=== PATIENT | female | born 2000 | race Two or more races ===

== ENCOUNTER 2021-02-26 14:00 | Inpatient (IN) | payer OTHER ==
[~2021-02-26] VITALS: Ht 157.5 cm; Wt 67.1 kg
[2021-03-05] MEDS ORDERED: PRENATAL TABLE1 EAC4 PO (21:52)
== END 2021-03-08 13:37 | disposition home or self-care (01) | DRG 807 ==
LOC: OB/GYN 03-06 05:53 → LDR 03-06 05:53 → OB/GYN 03-06 09:19 → SURH 03-07 14:00 → OB/GYN 03-08 13:37
PROVIDERS: ADMIT Obstetrics & Gynecology; ATTEND Obstetrics & Gynecology
PROC: 10E0XZZ Delivery of Products of Conception, External Approach (ICD-10-PCS; principal; 2021-03-06)
PROC: 0W8NXZZ Division of Female Perineum, External Approach (ICD-10-PCS; 2021-03-06)
PROC: 4A1HXFZ Monitoring of Products of Conception, Cardiac Rhythm, External Approach (ICD-10-PCS; 2021-03-06)
DX: O80 Encounter for full-term uncomplicated delivery (principal); Z37.0 Single live birth; Z3A.39 39 weeks gestation of pregnancy; Z20.822 Contact with and (suspected) exposure to COVID-19

== ENCOUNTER 2021-03-05 21:30 | Outpatient (CLI) | payer OTHER ==
[2021-03-05] MEDS ORDERED: PRENATAL TABLE1 EAC4 PO (21:52)
== END 2021-03-06 06:11 | disposition still patient (30) ==
LOC: OBS/DEL 21:30
PROVIDERS: ATTEND Obstetrics & Gynecology
DX: O47.1 False labor at or after 37 completed weeks of gestation (principal); Z3A.39 39 weeks gestation of pregnancy

== ENCOUNTER 2024-03-30 14:16 | Outpatient (CLI) | payer OTHER ==
[~2024-03-30 14:16] MED LIST: PRENATAL TABLE1 EAC4 PO
== END 2024-03-30 14:17 | disposition home or self-care (01) ==
LOC: PRENATAL 14:16
PROVIDERS: ATTEND Obstetrics & Gynecology Maternal & Fetal Medicine
DX: O35.9XX0 Maternal care for (suspected) fetal abnormality and damage, unspecified, not applicable or unspecified (principal); O35.3XX0 Maternal care for (suspected) damage to fetus from viral disease in mother, not applicable or unspecified; O44.03 Complete placenta previa NOS or without hemorrhage, third trimester; O36.8130 Decreased fetal movements, third trimester, not applicable or unspecified; O99.013 Anemia complicating pregnancy, third trimester; O98.513 Other viral diseases complicating pregnancy, third trimester; Z3A.33 33 weeks gestation of pregnancy

== ENCOUNTER 2024-04-29 06:14 | Inpatient (IN) | payer OTHER ==
[~2024-04-29] VITALS: Ht 157.5 cm; Wt 65.3 kg
[2024-04-29] MEDS ORDERED: RINGERS SOLUTION,LACTATED 1,000 ML IV SCH (06:30)
[2024-04-29] MEDS ORDERED: HIERRO PO (06:51)
[2024-04-29] MEDS ORDERED: OXYTOCIN 500 ML IV SCH (07:30)
[2024-04-29 08:03] LABS: HEMATOCRIT 32.4 % (36.0-45.00); MEAN CELL VOLUME 85.4 fL (80.00-100.00); MEAN CORPUSCULAR HGB CONC 33.9 g/dl (32.0-36.0); RED CELL DISTRIBUTION WIDTH 15.1 % (11.5-14.5)
[2024-04-29 08:08] LABS: PLATELET COUNT 102 K/uL (150-450)
[2024-04-29 08:23] LABS: INR 0.96; PARTIAL THROMBOPLASTIN TIME 25.9 SECONDS (22.0-34.0); PROTHROMBIN TIME 10.1 SECONDS (9.0-11.5)
[2024-04-29 08:43] LABS: ALBUMIN 2.8 gm/dL (3.4-5.0); BILIRUBIN TOTAL 0.41 mg/dL (0.3-1.2); CALCIUM 8.4 mg/dL (8.5-10.1); CREATININE SERUM 0.58 mg/dL (0.55-1.02); GFR 127.72; GLOBULINA 3.5 G/DL (2.4-3.5); POTASSIUM 3.8 mEq/L (3.5-5.1); TOTAL PROTEIN 6.3 gm/dL (6.4-8.2)
[2024-04-29 08:44] LABS: URINE APPEARANCE Clear; URINE BILIRRUBIN Negative (NEGATIVE); URINE BLOOD Negative; URINE COLOR Orange; URINE GLUCOSE Negative (NEGATIVE); URINE LEUKOCYTE Negative; URINE NITRATE Negative; URINE PROTEIN Negative (NEGATIVE); URINE UROBILINOGEN 0.2 E.U./dl
[2024-04-29 08:49] LABS: URINE BACTERIA 352.5 uL (0.0-1933); URINE EPITHELIAL CELLS 15.3 uL (0.0-38.8); URINE WBC 6.9 uL (0.0-23.2)
[2024-04-29 08:58] LABS: URINE RBC 1.5 uL (0.0-20.8)
[2024-04-29] MEDS ORDERED: MEPERIDINE HCL/PF 25 MG/ML VIAL IV ONE (13:15)
[2024-04-29] MEDS ORDERED: PROMETHAZINE HCL 25 MG/ML AMPUL IV NR (13:15)
[2024-04-29] MEDS ORDERED: ERYTHROMYCIN BASE 1 GM TUBE OP ONE (14:49)
[2024-04-29] MEDS ORDERED: OXYTOCIN 20 UNITS/1000ML RL PIGGYBAG IV ONE (14:50)
[2024-04-29] MEDS ORDERED: CHLORHEXIDINE GLUCONATE 120 ML BOTTLE TOP ONE (14:50)
[2024-04-29] MEDS ORDERED: LIDOCAINE HCL 1% 10ML VIAL ONE (14:50)
[2024-04-29] MEDS ORDERED: IBUprofen 400 MG TABLET PO PRN (15:15)
[2024-04-29] MEDS ORDERED: ERYTHROMYCIN BASE 1 GM TUBE OP SCH (15:15)
[2024-04-29] MEDS ORDERED: CHLORHEXIDINE GLUCONATE 120 ML BOTTLE TP SCH (15:15)
[2024-04-29] MEDS ORDERED: OXYTOCIN 1,000 ML IV SCH (15:15)
[2024-04-29] MEDS ORDERED: LIDOCAINE HCL 1% 10ML VIAL IJ ONE (15:45)
[2024-04-30] MEDS ORDERED: SENNOSIDES 1 TAB TABLET PO NR (19:30)
[2024-05-01] MEDS ORDERED: SENNOSIDES 1 TAB TABLET PO SCH (09:00)
[2024-05-01] MEDS ORDERED: NAPR500T14 PO (12:33)
== END 2024-05-01 13:29 | disposition home or self-care (01) | DRG 807 ==
LOC: OB/GYN 06:14 → LDR 06:14 → OB/GYN 15:30
PROVIDERS: ADMIT Obstetrics & Gynecology; ATTEND Obstetrics & Gynecology
PROC: 10E0XZZ Delivery of Products of Conception, External Approach (ICD-10-PCS; principal; 2024-04-29)
PROC: 0UQMXZZ Repair Vulva, External Approach (ICD-10-PCS; 2024-04-29)
PROC: 4A1HXCZ Monitoring of Products of Conception, Cardiac Rate, External Approach (ICD-10-PCS; 2024-04-29)
DX: O71.82 Other specified trauma to perineum and vulva (principal); Z37.0 Single live birth; Z3A.38 38 weeks gestation of pregnancy; Z20.822 Contact with and (suspected) exposure to COVID-19